=== PATIENT | female | born 1990 | race Caucasian/White ===

== ENCOUNTER 2018-04-20 00:37 | Inpatient (IN) | payer OTHER ==
--- OUTSIDE RECORDS SUMMARY | ~2018-04-20 | XMS | Encounter Summary ---
Demographics + + + | Address | [address] | | | [place] [address] | + + + | Home Phone | | + + + | Preferred Language | Unknown | + + + | Marital Status | | + + + | Taoism Affiliation | [id number] | + + + | Race | Unknown | + + + | Ethnic Group | Unknown | + + + Author + + + | Author | [facility] | + + + | Organization | [facility] | + + + | Address | Unknown | + + + | Phone | Unavailable | + + + Support + + +---------+ + | Name | Relationship | Address | Phone | + + +---------+ + | Shawn Mcgraw | ECON | Unknown | | + + +---------+ + | Angela Mcgraw | ECON | Unknown | | + + +---------+ + | Adam Mix | ECON | Unknown | | + + +---------+ + Care Team Providers + +------+ + | Care Mobile Home Mechanic Name | Role | Phone | + +------+ + | None, Per Pt | PCP | [id number] | + +------+ + Reason for Visit + + + | Reason | Comments | + + + | Follow-up | | + + + Encounter Details +--------+---------+ + + + | Date | Type | Department | Care Team | Description | +--------+---------+ + + + | 03/17/ | Office | [facility] | Gloria Quinones MD | Hypothyroidism | | 2017 | Visit | Endocrinology [address] | [address] | complicating | | | | [place] | [place], [place] | in third | | | | [place], [place] | [address] | trimester (Primary | | | | [address] | | Dx); History of | | | | [phone] | | thyroid cancer; | | | | | | Hypothyroidism, | | | | | | postsurgical | +--------+---------+ + + + Social History + + + +--------+ + | Tobacco Use | Types | Packs/Day | Years | Date | | | | | Used | | + + + +--------+ + | Former Smoker | Cigarettes | 0.25 | | Quit: 09/23/2017 | + + + +--------+ + + +---+---+---+ | Smokeless Tobacco: | | | | | Never Used | | | | + +---+---+---+ + + +---------+ + | Alcohol Use | Drinks/We | oz/Week | Comments | | | ek | | | + + +---------+ + | No | 0 | 0.0 | | | | Standard | | | | | drinks or | | | | | | | | | | equivalen | | | | | t | | | + + +---------+ + + + + | Sex Assigned at | Date Recorded | | | | + + + | Not on file | | + + + as of this encounter Last Filed Vital Signs + + + + | Vital Sign | Reading | Time Taken | + + + + | Blood Pressure | 104/66 | 03/17/2018 11:20 AM PDT | + + + + | Pulse | 77 | 03/17/2018 11:20 AM PDT | + + + + | Temperature | - | - | + + + + | Respiratory Rate | - | - | + + + + | Oxygen Saturation | 97% | 03/17/2018 11:20 AM PDT | + + + + | Inhaled Oxygen | - | - | | Concentration | | | + + + + | Weight | 59.9 kg (132 lb) | 03/17/2018 11:20 AM PDT | + + + + | Height | - | - | + + + + | Body Mass Index | 21.31 | 03/17/2018 11:20 AM PDT | + + + + in this encounter Instructions Patient Instructions - lGoria Quinones MD - 03/17/2018 11:[address] - we will notify you of results and recommendations Continue levothyroxine 250mcg daily Plan to check labs 4-6 weeks after baby is born. Call back list for May appt.in this encounter Progress Notes Gloria Quinones MD - 03/17/2018 11:00 AM PDTFormatting of this note may be different from t nu original. Subjective: Patient ID: Jennifer Mcgraw is a 28 y.o. female with PMHx significant for thyroid cancer and myotonic dystrophy here for evaluation and management of hypothyroidism (postoperative) in the setting of thyroid cancer Last seen 10/07/17 Interval events: currently 34 weeks "I feel pretty normal. I have the normal tiredness a preg woman would have. NOT everyday." In December increased to 250mcg daily after TSH = 3.[address] Tobias 01/25/18 rad onc - reviewed note No recent vomitting. Taking LT4 250mcg daily - "I didn't feel as tired with the higher dose. The heart rhythm th ing improved with the increased dose too." Adherence: 100% Administration: proper Denies hyperthyroid symptoms - no tremors, hot flashes, insomnia. Does endorse occ hot flashes No recent palpitations unaccompanied Thyroid Problem Presents for follow-up visit. The condition has lasted for 1 year. Symptoms include cold in tolerance, constipation, diarrhea, fatigue, heat intolerance, palpitations (chronic) and migue ght gain. Patient reports no anxiety, depressed mood, diaphoresis, tremors or weight loss. M enstrual problem: currently . Past treatments include levothyroxine. Prior procedure s include thyroid ultrasound and thyroidectomy. PREVIOUSLY OBTAINED INFORMATION PT seen urgently today PTC unifocal right lobe start [id number] = STAGE 1. 2.3cm focal intracapsular invasion no extra thyroidal extension Total thyroidectomy 05/02/[address] Renee "she did not have any strong indications for adjuvant I131" Since her diagnosis she had a which terminated in a spontaneous with caron pected NTD. 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 Adherence: 100% - "there are times where I wake up and I start my day and forget it" - maymary e forgets once per month. Administration: proper - takes PNV between 12-2pm, then takes 4gm folic acid at bedtime. Denies use of any other supplements, fiber, calcium etc. "I think I might have a bladder infection" "Currently I feel pretty good" Energy - some days Im tired other days im ok. Denies tremors "When I am Ill get a fluttery heart beat" - "Its not an everyday thing, its every once in awhile" Not currently having vomitting or nausea - "I havent thrown up at all" "They said the head is a little bigger than the rest of the body, and the femur is a little small" - waiting to find out results re: downs syndrome. HR and growth overall was good. Thru the has gained 4 pounds +CAD in her family The following portions of the patient's history were reviewed and updated as appropriate: a llergies, current medications, past family history, past medical history, past social histor y, past surgical history and problem list. Review of Systems Constitutional: Positive for fatigue and weight gain. Negative for activity change, appetit e change, diaphoresis, unexpected weight change and weight loss. HENT: Negative for hearing loss, rhinorrhea, sore throat, trouble swallowing and voice gandhi ge. Eyes: Negative for redness and visual disturbance. Respiratory: Negative for cough, choking, chest tightness and shortness of breath. Cardiovascular: Positive for palpitations (chronic). Negative for chest pain and leg swelli ng. Gastrointestinal: Positive for constipation and diarrhea. Negative for abdominal distention , abdominal pain, nausea and vomiting. Endocrine: Positive for cold intolerance and heat intolerance. Genitourinary: Negative for dysuria, frequency and urgency. Menstrual problem: currently pr egnant. Musculoskeletal: Negative for arthralgias, back pain, gait problem, joint swelling, myalgia s, neck pain and neck stiffness. Skin: Negative for rash and wound. Neurological: Negative for dizziness, tremors, syncope, light-headedness, numbness and head aches. Psychiatric/Behavioral: Negative for decreased concentration and sleep disturbance. The pat iemeng is not nervous/anxious. Objective: Physical Exam Constitutional: She is oriented to person, place, and time. She appears well-developed and well-nourished. No distress. HENT: Head: Normocephalic and atraumatic. Right Ear: External ear normal. Left Ear: External ear normal. Nose: Nose normal. Mouth/Throat: Oropharynx is clear and moist. No oropharyngeal exudate. Eyes: Pupils are equal, round, and reactive to light. Conjunctivae and EOM are normal. Righ t eye exhibits no discharge. Left eye exhibits no discharge. No scleral icterus. No proptosis, lid lag, or scleral injection noted Neck: Normal range of motion. Neck supple. No JVD present. No tracheal deviation present. N o thyromegaly present. Well-healed anterior cervical scar +bilateral small lymph nodes, mobile, rubbery NTTP Cardiovascular: Normal rate, regular rhythm, normal heart sounds and intact distal pulses. Exam reveals no gallop and no friction rub. No murmur heard. Pulmonary/Chest: Effort normal and breath sounds normal. No stridor. No respiratory distres s. She has no wheezes. She has no rales. She exhibits no tenderness. Abdomina/Gl: Soft. Bowel sounds are normal. She exhibits no distension and no mass. There i s no tenderness. There is no rebound and no guarding. Musculoskeletal: Normal range of motion. She exhibits no edema or tenderness. Lymphadenopathy: She has no cervical adenopathy. Neurological: She is alert and oriented to person, place, and time. She has normal reflexes . She displays normal reflexes. No cranial nerve deficit. She exhibits normal muscle tone. C oordination normal. No tremor with outstretched hands Skin: Skin is warm and dry. No rash noted. She is not diaphoretic. No erythema. No pallor. Psychiatric: She has a normal mood and affect. Her behavior is normal. Judgment and thought content normal. Nursing note and vitals reviewed. Component Latest Ref Rng 05/17/2014 06/19/2014 06/19/2014 06/19/2014 4:05 PM 4:17 PM 4:17 PM 4:17 PM T3 UPTAKE 30.0 - 39.0 % 25.8 (L) T4 4.7 - 11.3 ug/dL 10.9 FTI 1.1 - 4.6 2.8 TSH 0.45 - 5.10 uIU/mL 2.32 HEP B SURFACE AG TREP PALLIDUM BY EIA RUBELLA THYROGLOBULIN AB <0.4 U/mL <0.4 <0.4 THYROGLOBULIN 1.4 0.10 Comment SEE BELOW SEE BELOW TEST RESULT AMYLASE 25 - 115 U/L LIPASE 73 - 393 U/L HIV1/HIV2 FREE T4 0.7 - 1.5 ng/dL 0.9 Component Latest Ref Rng 08/30/2014 08/30/2014 08/30/2014 10/11/2014 3:37 PM 3:37 PM 3:37 PM 3:53 PM T3 UPTAKE 30.0 - 39.0 % 25.3 (L) T4 4.7 - 11.3 ug/dL 14.6 (H) FTI 1.1 - 4.6 3.7 TSH 0.45 - 5.10 uIU/mL 0.41 (L) HEP B SURFACE AG TREP PALLIDUM BY EIA RUBELLA THYROGLOBULIN AB <0.4 U/mL <0.4 <0.4 THYROGLOBULIN 0.15 0.10 Comment SEE BELOW SEE BELOW TEST RESULT AMYLASE 25 - 115 U/L LIPASE 73 - 393 U/L HIV1/HIV2 FREE T4 0.7 - 1.5 ng/dL 1.3 Component Latest Ref Rn 10/11/2014 10/11/2014 04/23/2015 04/23/2015 3:53 PM 3:53 PM 4:20 PM 4:20 PM T3 UPTAKE 30.0 - 39.0 % 25.2 (L) 17.5 (L) T4 4.7 - 11.3 ug/dL 13.0 (H) 12.5 (H) FTI 1.1 - 4.6 3.3 2.2 TSH 0.45 - 5.10 uIU/mL 0.54 4.43 HEP B SURFACE AG TREP PALLIDUM BY EIA RUBELLA THYROGLOBULIN AB <0.4 U/mL <0.4 THYROGLOBULIN 0.23 Comment SEE BELOW TEST RESULT AMYLASE 25 - 115 U/L LIPASE 73 - 393 U/L HIV1/HIV2 FREE T4 0.7 - 1.5 ng/dL 1.3 Component Latest Ref Rn 04/23/2015 4:20 PM T3 UPTAKE 30.0 - 39.0 % T4 4.7 - 11.3 ug/dL FTI 1.1 - 4.6 TSH 0.45 - 5.10 uIU/mL HEP B SURFACE AG TREP PALLIDUM BY EIA RUBELLA THYROGLOBULIN AB <0.4 U/mL THYROGLOBULIN Comment TEST RESULT AMYLASE 25 - 115 U/L LIPASE 73 - 393 U/L HIV1/HIV2 FREE T4 0.7 - 1.5 ng/dL 1.1 07/11/15 TSH 1.91 FT4 0.88 FT3 2.04 10/29/15 (pt missed some pills after baby was born) TSH 5.37 FT4 0.94 11/20/15 TSH 0.04 FT4 1.13 FT3 3.44 04/28/16 TSH 0.05 FT4 1.15 (0.61-1.12) FT3 2.89 Component Latest Ref Rng 06/13/2016 06/13/2016 1:06 PM 1:06 PM TSH 0.45 - 5.10 u[iU]/mL 0.71 THYROGLOBULIN AB <0.4 U/mL <0.4 THYROGLOBULIN 0.10 Comment SEE BELOW 08/06/16 TSH 0.05 FT4 1.16 FT3 3.27 Component Latest Ref Rng & Units 06/24/2017 06/24/2017 3:07 PM 3:07 PM THYROGLOBULIN AB <0.4 U/mL <0.4 THYROGLOBULIN ng/mL <0.10 Comment SEE BELOW TEST,SERUM NEGATIVE FREE T4 0.7 - 1.5 ng/dL FREE T3 2.18 - 3.98 pg/mL TSH 0.45 - 5.10 u[iU]/mL 0.40 (L) 09/03/17 TSH 1.67 FT4 1.0 FT3 2.4 12/31/17 TSH 3.5 FT4 0.94 Neck US 08/30/14 HISTORY: Thyroid resection. Thyroid malignancy. Evaluate for recurrence. COMPARISON: None. TECHNIQUE: 8 MHz linear sonographic grayscale evaluation of the neck. FINDINGS: Thyroid gland is resected. No residual thyroid tissue or lymphadenopathy is seen in the nec k. IMPRESSION: 1. Thyroidectomy, without evidence of recurrent disease in the neck. JENNIFER MCGRAW US SOFT TISSUE NECK AND HEAD - 06/23/2016 2:23 PM History: 26 years. Female. Thyroidectomy for papillary thyroid cancer 2014. Follow- up exam. Technique: A high-resolution grayscale duplex transducer with color and pulsed Doppler tammie mckay was utilized for imaging, with li scale and color image recording in multiple anato mical planes. Comparison Exam: 08/22/14 Findings: No residual thyroid tissue visualized in the thyroid fossa of the lower neck. No ultrasonic mass or adenopathy visualized in the lower neck. The cardiovascular radiologic technologist identified tissue in the LEFT thyroid fossa labeled as residual thyroid tissue. This finding more likely represents normal paratracheal connective and ad ipose tissue. There is no postoperative I-123 imaging at this facility for correlation. IMPRESSION: 1. No residual thyroid tissue identified. 2. No recurrent disease visualized in the lower neck. JENNIFER RODRIGUEZILLO NM THYROID WHOLE BODY SCAN ONLY - 01/06/2017 4:08 PM History: 27 years. Female. Papillary thyroid carcinoma, unifocal right lobe, status post total thyroidectomy on 05/02/2014. Low dose iodine-131 iodine ablation with 34.9 mCi of iod ine-131 on 12/25/2016. TECHNIQUE: 12 day follow-up whole body imaging in AP and PA projections, with small field o f view imaging of the neck with and without typographical markers. Findings: Views of the neck demonstrate small areas of residual iodine-131 uptake visualize d in the lower neck at the midline, near the sternal notch. There is minimal tracer uptake in the salivary glands. Whole-body views are negative for abnormal uptake in the chest, abdomen or pelvis. There i s bowel physiological uptake in the liver and spleen. Neck uptake is also visualized on the whole body images, as described above. IMPRESSION: 1. Residual, mild iodine-131 uptake in the thyroid fossa. 2. Physiological tracer uptake in the salivary glands, liver and spleen. 3. No metastasis visualized. JENNIFER Pedro MARILUZ 1991 US SOFT TISSUE NECK AND HEAD 06/24/2017 3:34 PM HISTORY: History of papillary thyroid carcinoma, status post total thyroid resection on 04/05 COMPARISON: [facility] thyroid whole body scan 01/06/2017, ultrasound soft tissue neck TECHNIQUE: Grayscale and color Doppler techniques were utilized with a linear transducer. FINDINGS: Patient is post total thyroidectomy. No residual thyroid tissue is demonstrated. Several morphologically normal-appearing cervical lymph nodes are demonstrated including a right level 1 lymph node measuring 5 x 7 mm in long axis, a left level 4 lymph node which me asures 8 x 5 mm, and a level 5 lymph node which measures 4 x 2 mm. October 2017 thyroid US - images reviewed personally by me, agree with below assessment IMPRESSION: 1. No sonographic evidence of residual or recurrent disease. History: 27 -year-old female with palpable abnormality Technique: Ultrasound of the neck, region of thyroid bed. History of thyroid malignancy Findings: No mass or adenopathy in the region of the patient's abnormality, to the right of midline IMPRESSION: Normal soft tissues, no adenopathy or evidence of residual thyroid tissue on the imaging of fered Assessment and Plan: 28 y.o. female with PMHx significant for thyroid cancer and myotonic dystrophy here for rea luation and management of hypothyroidism (postoperative) and thyroid cancer CURRENTLY PREGNA NT Hypothyroidism, postoperative for thyroid cancer: Pt relayed that overall she typically moctezuma s not feel well when the TSH is <0.5 (which would be the recommended goal per thyroid cancer management guidelines). +chronic palpitations likely made worse with aggressive thyroid hor shantanu replacement. FOR NOW : recommend following standard thyroid balance targets for pregnan cy - Also discussed importance of 100% adherence and encourage pt to obtain a pill box. Discus sed that she can take double dose the next day if she forgets her levothyroxine the day prio r without concern for ill effects. -continue LT4 250mcg daily -labs today and prior to the next appointment -discussed proper administration -pt counseled regarding potential health ramifications of penitentiary overmedication with thyr oid hormone including afib/stroke and osteoporosis/fractures. Pt has also been counseled on the signs and symptoms of overmedication+undermedication with thyroid hormone and will call our office if experiencing any of these. Pt has been counseled that untreated overt hypothyroidism is indeed associated both with de creased fertility and increased first trimester miscarriages. Additionally, pregnancies that do proceed into the second and third trimesters tend to be complicated by increased risk fo r hypertension, delivery, low rate, . There are a few older studies t hat suggest that the neurocognitive development of the fetus may be impaired. Despite all th is universal screening of women for hypothyroidism has not yet been recommended by many professional societies. We discussed that synthetic thyroid hormone is used to manage hypothyroidism in . To help with fertility, prepregnancy TSH goals are 1-2.5. During the TSH goal rang es are as follows: 1st trim: 0.1 to 2.5 mU/L 2nd trim: 0.2 to 3 mU/L 3rd trim: 0.3 to 3 mU/L FT4 above 1.0 We also discussed that we expect patients with preexisting hypothyroidism to need as much a s a 50% increase in their thyroid hormone replacement by the end of the , and perha ps a 20-30% increase immediately, particularly if they had not previously been taking PNV. O ften the necessary increases in thyroid hormone dose slow by the second half of , t hus I doubt that she will continue to need significant increases in thyroid hormone dose as the progresses. Will plan to monitor TFTs every 2-4 weeks during and adjust thyroid hormone dose accordingly. They were counseled that having Hashimotos may increase their risk for miscarriage, and the ir risk for thyroiditis in the first 9 months or so after the of the baby. We will be monitoring her thyroid levels after as well to screen for PPT. She has been counseled regarding the signs and symptoms of overmedication with thyroid horm one including but not limited to insomnia, anxiety, hot flashes, tremors and palpitations. S he has been advised to call the office if she experiences any of these symptoms over and abo ve her baseline. Would likely recommend thyroid lab evaluation at that time. The importance of 100% adherence and proper administration of thyroid hormone was discussed extensively. Thyroid cancer: defer monitoring for recurrence and future I131 etc to radiation oncology - most recent Tg and Tgab were entirely negative in Jun 2017, making recurrence unlikely. Remainder of patients medical conditions to be managed by primary care physician and other involved specialists. RTC 3 months with labs one week prior We will call with the results of the lab evaluations done in the interim to discuss any rec ommendations at that time regarding medications, follow up, and future lab work. The patient voiced understanding and agreement with these plans and had no questions after our discussion. They were encouraged to call if there are any other questions or concerns in the future. I spent 25 minutes with this patient. Greater than 50% of the time (15 min) was spent in co unseling as detailed above. Jennifer was seen today for follow-up. Hypothyroidism complicating in third trimester - TSH; Future - Free T4; Future - Free T3; Future - TSH; Future - Free T4; Future - Free T3; Future in this encounter Plan of Treatment +---------+--------+ + + | Name | Priori | Associated Diagnoses | Order Schedule | | | ty | | | +---------+--------+ + + | TSH | Routin | Hypothyroidism | Expected: 06/15/2018 | | | e | complicating | (Approximate), | | | | in third | Expires: 03/17/2019 | | | | trimester | | +---------+--------+ + + | Free T4 | Routin | Hypothyroidism | Expected: 06/15/2018 | | | e | complicating | (Approximate), | | | | in third | Expires: 03/17/2019 | | | | trimester | | +---------+--------+ + + | Free T3 | Routin | Hypothyroidism | Expected: 06/15/2018 | | | e | complicating | (Approximate), | | | | in third | Expires: 03/17/2019 | | | | trimester | | +---------+--------+ + + as of this encounter Results Free T3 (03/17/2018 11:47 AM) + +-------+ + + | Component | Value | Ref Range | Performed At | + +-------+ + + | FREE T3 | 2.8 | 2.18 - 3.98 pg/mL | [facility] | | | | | LABORATORY | + +-------+ + + + + | Specimen | + + | Blood | + + + + + + + | Performing | Address | City/State/Zipcode | Phone Number | | Organization | | | | + + + + + | [facility] | [address] | [place] [address] | [phone] | | LABORATORY | [address] | | | + + + + + Free T4 (03/17/2018 11:47 AM) + +-------+ + + | Component | Value | Ref Range | Performed At | + +-------+ + + | FREE T4 | 1.4 | 0.7 - 1.5 ng/dL | [facility] | | | | | LABORATORY | + +-------+ + + + + | Specimen | + + | Blood | + + + + + + + | Performing | Address | City/State/Zipcode | Phone Number | | Organization | | | | + + + + + | [facility] | [address] | [place] [address] | [phone] | | LABORATORY | [address] | | | + + + + + TSH (03/17/2018 11:47 AM) + + + + + | Component | Value | Ref Range | Performed At | + + + + + | TSH | 0.269 (L) | 0.450 - 5.100 | [facility] | | | | u[iU]/mL | LABORATORY | + + + + + + + | Specimen | + + | Blood | + + + + + + + | Performing | Address | City/State/Zipcode | Phone Number | | Organization | | | | + + + + + | [facility] | [address] | [place] [address] | [phone] | | LABORATORY | [address] | | | + + + + + in this encounter Visit Diagnoses + + | Diagnosis | + + | Hypothyroidism complicating in third trimester - Primary | + + | History of thyroid cancer | + + | Personal history of malignant neoplasm of thyroid | + + | Hypothyroidism, postsurgical | + + | Postsurgical hypothyroidism | + +
--- OUTSIDE RECORDS SUMMARY | ~2018-04-20 | XMS | Encounter Summary ---
Demographics + + + | Address | [address] | | | [place] [address] | + + + | Home Phone | | + + + | Preferred Language | Unknown | + + + | Marital Status | | + + + | Adventist Affiliation | 1013 | + + + | Race | Unknown | + + + | Ethnic Group | Unknown | + + + Author + + + | Author | [facility] | + + + | Organization | [facility] | + + + | Address | Unknown | + + + | Phone | Unavailable | + + + Support + + +---------+ + | Name | Relationship | Address | Phone | + + +---------+ + | Shawn Lund | ECON | Unknown | | + + +---------+ + | Angela Lund | ECON | Unknown | | + + +---------+ + | Adam Mix | ECON | Unknown | | + + +---------+ + Care Team Providers + +------+ + | Care Cable Television Technician Name | Role | Phone | + +------+ + | Manda, Per Pt | PCP | [id number] | + +------+ + Encounter Details +--------+ + + + + | Date | Type | Department | Care Team | Description | +--------+ + + + + | 01/25/ | Telephone | [facility] | Gloria Quinones MD | | | 2018 | | Endocrinology [address] | [address] | | | | | [place] [address] | [place] | | | | | [place] | [address] | | | | | [address] | | | | | | [phone] | | | +--------+ + + + + Social History + + [...] + + + as of this encounter Plan of Treatment Not on fileas of this encounter Visit Diagnoses Not on filein this encounter"
--- OUTSIDE RECORDS SUMMARY | ~2018-04-20 | XMS | Encounter Summary ---
Demographics + + + | Address | [address] | | | [place] [address] | + + + | Home Phone | | + + + | Preferred Language | Unknown | + + + | Marital Status | | + + + | Hinduism Affiliation | 1013 | + + + | Race | Unknown | + + + | Ethnic Group | Unknown | + + + Author + + + | Author | [facility] | + + + | Organization | [facility] | + + + | [...] Team Providers + +------+ + | Care Ladle Cleaner Name | Role | Phone | + +------+ + | Manda, Per Pt | PCP | 000-0000 | + +------+ + Encounter Details +--------+ + + + + | Date | Type | Department | Care Team | Description | +--------+ + + + + | 01/26/ | Telephone | [facility] | Gloria Quinones MD | | | 2018 | | Endocrinology [address] | [address] | | | | | [place] | [place] | | | | | [place] | [address] | | | | | [address] | | | | | | [phone] | | | +--------+ + + + [...] on fileas of this encounter Visit Diagnoses + + | Diagnosis | + + | Hypothyroidism complicating , first trimester - Primary | + +"
--- OUTSIDE RECORDS SUMMARY | ~2018-04-20 | XMS | Encounter Summary ---
Demographics + + + | Address | [address] | | | [place] [address] | + + + | Home Phone | | + + + | Preferred Language | Unknown | + + + | Marital Status | | + + + | Sabianism Affiliation | 1013 | + + + | Race | Unknown | + + + | Ethnic Group | Unknown | + + + Author + + + | Author | [facility] | + + + | Organization | [facility] | + + + [...] Team Providers + +------+ + | Care Bass String Winder Name | Role | Phone | + +------+ + | Manda, Per Pt | PCP | 000-0000 | + +------+ + Encounter Details +--------+ + + + + | Date | Type | Department | Care Team | Description | +--------+ + + + + | 01/25/ | Telephone | [facility] | Nettie Francois, | | | 2017 | | 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
--- OUTSIDE RECORDS SUMMARY | ~2018-04-20 | XMS | Encounter Summary ---
Demographics + + + | Address | [address] | | | [place] [address] | + + + | Home Phone | | + + + | Preferred Language | Unknown | + + + | Marital Status | | + + + | Yarsanism Affiliation | 1013 | + + + | Race | Unknown | + + + | Ethnic Group | Unknown | + + + Author + + + | Author | [facility] | + + + | Organization | [facility] | + + [...] Team Providers + +------+ + | Care Road Marker Name | Role | Phone | + +------+ + | None, Per Pt | PCP | 000-0000 | + +------+ + Encounter Details +--------+ + + + + | Date | Type | Department | Care Team | Description | +--------+ + + + + | 03/17/ | Lab | [facility] | Jabier Kirkpatrick, | Hypothyroidism | | 2018 | Requisition | [address] | [employer] | complicating | | | | [place] [address] | | in third | | | | [phone] | | trimester | +--------+ + + + + Social [...] + + + as of this encounter Progress Notes Gloria Quinones MD - 03/17/2018 11:48 AM PDTPlease contact patient and inform of the lab re rosa. Please also send this recommendations and results to YAMILEX Turner in [facility] to see you today! Please make one small change to the thyroid hormone dosing: on Mondays and fridays please t kai just 200 mcg rather than the full 250mcg. Thus on 5 days of the week continue 200+50mcg tabs daily, then just 2 days of the week take the 200 ONLY. Please continue with all other previous plans for management and follow up, unless there ar e any other concerns or questions. Take care SBin this encounter Plan of Treatment Not on fileas of this encounter Procedures + +--------+ + + + | Procedure Name | Priori | Date/Time | Associated Diagnosis | Comments | | | ty | | | | + +--------+ + + + | T3, FREE | Routin | 03/17/2018 | Hypothyroidism | Results for this | | | e | 11:47 AM | complicating | procedure are in the | | | | PDT | in third | results section. | | | | | trimester | | + +--------+ + + + | TSH | Routin | 03/17/2018 | Hypothyroidism | Results for this | | | e | 11:47 AM | complicating | procedure are in the | | | | PDT | in third | results section. | | | | | trimester | | + +--------+ + + + | T4, FREE | Routin | 03/17/2018 | Hypothyroidism | Results for this | | | e | 11:47 AM | complicating | procedure are in the | | | | PDT | in third | results section. | | | | | trimester | | + +--------+ + + + in this encounter Results Free T3 (03/17/2018 11:47 [...] + + + | [facility] | [address] | [place] [address] | [phone] | | LABORATORY | [address] | | [...] + + + | [facility] | [address] | [place] [address] | [phone] | | LABORATORY | Blvd[address] | | [...] | + + + + + | [facility] | [address] | [place] [address] | [phone] | | LABORATORY | Blvd. | | | + + + + + in this encounter Visit Diagnoses + + | Diagnosis | + + | Hypothyroidism complicating in third trimester | + +"
--- OUTSIDE RECORDS SUMMARY | ~2018-04-20 | XMS | Clinical Summary ---
Demographics + + + | Address | [address] | | | [place] [address] | + + + | Home Phone | | + + + | Preferred Language | Unknown | + + + | Marital Status | | + + + | Mandaeism Affiliation | 1013 | + + + | Race | Unknown | + + + | Ethnic Group | Unknown | + + + Author + + + | Author | [facility] | + + + | Organization [...] Team Providers + +------+ + | Care Chief Dietitian Name | Role | Phone | + +------+ + | None, Per Pt | PP | 000-0000 | + +------+ + Allergies + + + + + + | Active Allergy | Reactions | Severity | Noted | Comments | | | | | Date | | + + + + + + | Risperidone | Other (See Comments) | Medium | 05/23/20 | Was unable to move | | | | | 15 | her body | + + + + + + Current Medications + + +--------+---------+------+------+-------+ | Prescription | Sig. | Disp. | Refills | Star | End | Statu | | | | | | t | Date | s | | | | | | Date | | | + + +--------+---------+------+------+-------+ | Vit-Fe | Take 1 tablet by | | | | | Activ | | Fumarate-FA | mouth daily. | | | | | e | | ( | | | | | | | | MULTIVITAMIN) 60-1 | | | | | | | | MG tablet | | | | | | | + + +--------+---------+------+------+-------+ | levothyroxine | Take 1 tablet by | 30 | 11 | /2 | 01/02 | Activ | | (SYNTHROID) 50 MCG | mouth every morning | tablet | | 01/20 | 01/20 | e | | tabletIndications: | before breakfast. 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) | 06/28/2012 | + + + | Muscle spasm | 06/28/2012 | + + + | Myotonic dystrophy, type 1 (HCC) | 06/28/2012 | + + + + + + + | Currently | Estimated Date of Delivery | Comments | + + + + | Yes | 04/28/2018 | | + + + + Encounters +--------+ + + + + | Date | Type | Specialty | Care Team | Description | +--------+ + + + + | 03/17/ | Office | | Gloria Quinones MD | Hypothyroidism | | 2018 | Visit | | | complicating | | | | | | in third | | | | | | trimester (Primary | | | | | | Dx); History of | | | | | | thyroid cancer; | | | | | | Hypothyroidism, | | | | | | postsurgical | +--------+ + + + + | 03/17/ | Lab | | Jabier Kirkpatrick, | Hypothyroidism | | 2017 | Requisition | | News[employer] Vendor | complicating | | | | | | in third | | | | | | trimester | +--------+ + + + + | 01/26/ | Telephone | | Gloria Quinones MD | | | 2017 | | | | | +--------+ + + + + | 01/25/ | Telephone | | Nettie Francois, | | | 2017 | | | 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 | | +--------+ + + + | 01/25/ | Telephone | | Gloria Quinones MD | | | 2017 | | | | | +--------+ + + + + from Last 3 Months Immunizations + + + + | Name | Dates Previously Given | Next Due | + + + + | Influenza Split | 10/18/2011 | | + + + + | Influenza, PF | 10/18/2011 | | | Trivalent | | | + + + + Social History + [...] | | | + +---+---+---+ + + | Tobacco Cessation: Counseling Given: No | + + + + +---------+ + | Alcohol Use [...] + + +---------+ + + + + + | Currently | Estimated Date of Delivery | Comments | + + + + | Yes | 04/28/2018 | | + + + + + + + | Sex Assigned at | Date Recorded | | | | + + + | Not on file | | + + + Last Filed Vital Signs + + + + | Vital Sign | Reading | Time Taken | + + + + | Blood Pressure | 104/66 | 03/17/2018 11:20 AM PDT | + + + + | Pulse | 77 | 03/17/2018 11:20 AM PDT | + + + + | Temperature | 36.6 C (97.8 F) | 10/19/2011 6:53 AM PDT | + + + + | Respiratory Rate | 18 | 10/19/2011 6:53 AM PDT | + + + + | Oxygen Saturation | 97% | 03/17/2018 11:20 AM PDT | + + + + | Inhaled Oxygen | - | - | | Concentration | | | + + + + | Weight | 59.9 kg (132 lb) | 03/17/2018 11:20 AM PDT | + + + + | Height | 167.6 cm (5' 6") | 12/23/2016 1:16 PM PDT | + + + + | Body Mass Index | 21.31 | 03/17/2018 11:20 AM PDT | + + + + Plan of Treatment + + + + + | Health Maintenance | Due Date | Last Done | Comments | + + + + + | Vaccine: | | | | | Dtap/Tdap/Td (1 - | 0 | | | | Tdap) | | | | + + + + + | Cervical Cancer | | | | | Screening (Pap) | 2 | | | + + + + + | Vaccine: Influenza | | 10/18/2011 | | | (#1) | 8 | | | + + + + + Procedures + +--------+ + + + | [...] | | + +--------+ + + + from Last 3 Months Results Free T3 (03/17/2018 11:47 AM) + [...] + + + | [facility] | [address] | [place] [address] | [phone] | | LABORATORY | [address]vd[address] | | [...] + + + | [facility] | [address] | [place] [address] | [phone] | | LABORATORY | Blvd[address] | | [...] + + + | [facility] | [address] | [place] [address] | [phone] | | LABORATORY | Blvd. 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
[2018-04-20] MEDS ORDERED: SYNTHROID100 MCG PO ×2 (01:33→15:45)
== END 2018-04-22 14:30 | disposition home or self-care (01) | DRG 775 ==
LOC: FBC 00:37
PROVIDERS: ADMIT Obstetrics & Gynecology
PROC: 10E0XZZ Delivery of Products of Conception, External Approach (ICD-10-PCS; principal; 2018-04-20)
PROC: 10907ZC Drainage of Amniotic Fluid, Therapeutic from Products of Conception, Via Natural or Artificial Opening (ICD-10-PCS; 2018-04-20)
PROC: 00HU33Z Insertion of Infusion Device into Spinal Canal, Percutaneous Approach (ICD-10-PCS; 2018-04-20)
PROC: 3E0R3BZ Introduction of Anesthetic Agent into Spinal Canal, Percutaneous Approach (ICD-10-PCS; 2018-04-20)
DX: O80 Encounter for full-term uncomplicated delivery (principal); Z3A.38 38 weeks gestation of pregnancy; Z37.0 Single live birth
CPT/HCPCS: 01960; 36415; 85027; 99406; J2540; J2795; J7120